=== PATIENT | female | born 1965 | race Caucasian/White ===

== ENCOUNTER 2024-11-07 00:57 | Day surgery (SDC) | payer OTHER, SELFPAY ==
[2024-10-16 11:13] VITALS: BMI 25.8
[2024-11-07 06:27] VITALS: BP 152/94; PULSE 78; RESP 16; TEMP 36.3; O2SAT 99; BMI 25.8
[2024-11-07] MEDS: LACTATED RINGERS 1,000 ML 150 ML IV CONT (06:37)
--- NOTE | 2024-11-07 07:04 | P.PNAN_ITS ---
Anes - Initial Pre Proc Eval Procedure: Operation Date: 11/07/24 07:30 Proposed Procedures p Screening Colonoscopy - Bernabe Hood MD Date/Time: 11/07/24 07:04 Surgeon: Bernabe Hood MD Pre Op Diagnosis: Neoplasm screening Patient Data Age: 59 Gender: F Height: 1.7 m Weight: 74.9 kg Last Vital Signs Temp 36.3 C L 11/07/24 06:27 Pulse 78 11/07/24 06:27 Resp 16 11/07/24 06:27 BP 152/94 H 11/07/24 06:27 Pulse Ox 99 11/07/24 06:27 O2 Del Method Room Air 11/07/24 06:27 Allergies Allergy/AdvReac Type Severity Reaction Status Date / Time epinephrine AdvReac Unknown EXTREMELY Verified 11/07/24 06:23 RAPID HEARTBEAT WITH EPI DURING DENTAL PROCEDURE Lisinopril Allergy Mild Cough Uncoded 11/07/24 06:23 Losartan Allergy Cough Uncoded 11/07/24 06:23 Home Medications ?Medication ?Instructions ?Recorded ?Confirmed ?Type doxycycline hyclate 100 mg capsule 100 mg PO BID #14 caps 05/09/24 10/16/24 Rx fluconazole 150 mg tablet 150 mg PO .COMPLEX #2 tabs 05/09/24 10/16/24 Rx alprazolam 0.5 mg tablet 0.5 mg PO QHS PRN sleep #30 tabs 10/09/24 10/16/24 Rx Patient hx anesthesia problems: none Family hx anesthesia problems: none Results Review: All pre-operative results and documents have been reviewed as part of the pre- operative evaluation. [facility] Past Medical History Medical History Breast cancer Surgical History Surgical History History of cholecystectomy History of bilateral mastectomy 06/2013 Family History Family History Grandparent Acute myocardial infarction Breast cancer Hypertension Heart disease Family history of malignant neoplasm Other Acute myocardial infarction Heart disease Mother Carcinoma of colon Colon polyp Family history of malignant neoplasm Father Diabetes mellitus Family history of arthritis Hypertension Heart disease Sibling Family history of arthritis Sibling Family history of arthritis Social History Social History Smoking status: Never smoker Second hand tobacco smoke exposure: No Alcohol intake: current Alcohol use details: Socially Substance use: never Substance use type: does not use Lack of Transportation: No Lack of Food: Never True Current Housing: I Have Housing Concerned About Future Housing: No Difficulty Paying Gas/Electric Bills: No Difficulty Paying for Meds: No Currently Unemployed: No Education: Bachelor's Degree Difficulty w/ Childcare or Family Care: No Living arrangements: with family Occupation/Education: retired Gender identity (if verbalized by the patient): Female Sexual Orientation (if Verbalized by the Patient): Straight or Heterosexual Spiritual care concerns: No Agree to blood products: Yes Anes - Eval Final PreProcedure Day of Procedure 11/07/24 07:04 Patient weight: normal Heart: regular rate and rhythm Lungs: clear to auscultation Airway: Mallampati scale class II Neurological: alert and oriented Last oral intake: >/= 8 hours ASA classification: III Emergent: no Anesthetic plan: proceed Anesthesia type and monitoring: general GIVS and standard monitoring Results Review: All pre-operative results and documents have been reviewed as part of the pre- operative evaluation. Informed Consent: The patient's anesthetic plan and its attendant risks and benefits were discussed with the patient/family/POA. Questions were solicited and answers provided to the satisfaction of the patient/family/POA.
--- NOTE | 2024-11-07 07:24 | PM.HPGS ---
History of Present Illness History of Present Illness Consent: Risks, benefits, and alternatives have been discussed and questions answered. Patient agrees to proceed with procedure. Chief complaint: Neoplasm screening Narrative: Carolina Hammer is a 59 year old female with last colonoscopy 5 years ago, mother had colon cancer Review of Systems Review of Systems: All systems reviewed & are unremarkable except as noted in HPI and below PMFSH Past Medical History Medical History (Updated 11/07/24 @ 07:25 by Bernabe Hood MD) Family history of colon cancer in mother Breast cancer Surgical History Surgical History History of cholecystectomy History of bilateral mastectomy 06/2013 Family History Family History Grandparent Acute myocardial infarction Breast cancer Hypertension Heart disease Family history of malignant neoplasm Other Acute myocardial infarction Heart disease Mother Carcinoma of colon Colon polyp Family history of malignant neoplasm Father Diabetes mellitus Family history of arthritis Hypertension Heart disease Sibling Family history of arthritis Sibling Family history of arthritis Social History Social History Smoking status: Never smoker Second hand tobacco smoke exposure: No Alcohol intake: current Alcohol use details: Socially Substance use: never Substance use type: does not use Lack of Transportation: No Lack of Food: Never True Current Housing: I Have Housing Concerned About Future Housing: No Difficulty Paying Gas/Electric Bills: No Difficulty Paying for Meds: No Currently Unemployed: No Education: Bachelor's Degree Difficulty w/ Childcare or Family Care: No Living arrangements: with family Occupation/Education: retired Gender identity (if verbalized by the patient): Female Sexual Orientation (if Verbalized by the Patient): Straight or Heterosexual Spiritual care concerns: No Agree to blood products: Yes Meds Home Medications and Allergies Home Medications ?Medication ?Instructions ?Recorded ?Confirmed ?Type doxycycline hyclate 100 mg capsule 100 mg PO BID #14 caps 05/09/24 10/16/24 Rx fluconazole 150 mg tablet 150 mg PO .COMPLEX #2 tabs 05/09/24 10/16/24 Rx alprazolam 0.5 mg tablet 0.5 mg PO QHS PRN sleep #30 tabs 10/09/24 10/16/24 Rx Allergies Allergy/AdvReac Type Severity Reaction Status Date / Time epinephrine AdvReac Unknown EXTREMELY Verified 11/07/24 06:23 RAPID HEARTBEAT WITH EPI DURING DENTAL PROCEDURE Lisinopril Allergy Mild Cough Uncoded 11/07/24 06:23 Losartan Allergy Cough Uncoded 11/07/24 06:23 Vital Signs Vital Signs - 24 hr 11/07/24 06:27 Temperature 97.3 F L Pulse Rate 78 Respiratory Rate 16 Blood Pressure 152/94 H Pulse Oximetry 99 Oxygen Delivery Room Air Exam Const: General: comfortable and no acute distress HENMT: Face/Nose/Sinus: Normal nares present Eyes: General: appearance normal, both eyes and all related structures Neck: Neck: no JVD Resp: Auscultation: clear to auscultation bilaterally Cardio: Rate: regular rate Rhythm: regular rhythm GI: Inspection: non-distended GI Palp: Yes Soft to palpation Skin: General skin exam: normal color Neuro: General: gait normal Speech: normal speech Extrem: General: normal to inspection Psych: Mental Status: mental status grossly normal Assessment and Plan Assessment and plan (1) Family history of colon cancer in mother: Code(s): Z80.0 - Family history of malignant neoplasm of digestive organs Status: Acute Assessment and Plan: colonoscopy
[2024-11-07 07:41] VITALS: BP 103/71; PULSE 76; RESP 24; O2SAT 98
[2024-11-07 07:51] VITALS: BP 121/77; PULSE 68; RESP 18; O2SAT 99
[2024-11-07 08:01] VITALS: BP 129/92; PULSE 70; RESP 17; O2SAT 100
[2024-11-07 08:19] LABS: BEDSIDEPREGUCG Negative (Negative)
== END 2024-11-07 08:05 | disposition home or self-care (01) ==
PROVIDERS: PCP Family Medicine Adolescent Medicine; Referring Provider Nurse Practitioner Family; Visit Provider Internal Medicine Gastroenterology
PROC: 0DJD8ZZ Inspection of Lower Intestinal Tract, Via Natural or Artificial Opening Endoscopic (ICD-10-PCS; CPT 45378; principal; 2024-11-07 07:30)
DX: Z12.11 Encounter for screening for malignant neoplasm of colon (principal); K64.8 Other hemorrhoids; K57.30 Diverticulosis of large intestine without perforation or abscess without bleeding; Z98.890 Other specified postprocedural states; Z90.49 Acquired absence of other specified parts of digestive tract; Z90.13 Acquired absence of bilateral breasts and nipples; Z85.3 Personal history of malignant neoplasm of breast; Z80.3 Family history of malignant neoplasm of breast; Z80.0 Family history of malignant neoplasm of digestive organs; Z82.49 Family history of ischemic heart disease and other diseases of the circulatory system
CPT/HCPCS: 45378; J2003; J2704; J7120

== ENCOUNTER 2025-06-13 08:03 | Outpatient (CLI) | payer OTHER, SELFPAY ==
--- NOTE | ~2025-06-13 | XR_ITS ---
XR thoracic spine 3V 06/13/2025 08:33 Indication: Back pain Procedure: 3 views thoracic spine Comparison: No prior studies for comparison. Findings: There is mild dextrocurvature centered at the thoracolumbar junction. Vertebral body height s are maintained. No acute fracture, subluxation or dislocation. No paraspinal soft tissue abnormalit y. Pedicles intact. Impression: 1: No acute abnormality of the thoracic spine. 2: Mild dextrocurvature of the spine centered at the thoracolumbar junction Reviewed, dictated and finalized at location A. Impression: 1: No acute abnormality of the thoracic spine. 2: Mild dextrocurvature of the spine centered at the thoracolumbar junction
--- NOTE | ~2025-06-13 | XR_ITS ---
XR shoulder RT min 2V 06/13/2025 08:33 Indication: Right shoulder pain Procedure: 4 views right shoulder Comparison: No prior studies for comparison. Findings: There is anatomic alignment. No fracture, subluxation or dislocation. No soft tissue abnorm ality. No foreign bodies. Impression: 1: No acute bone or joint abnormality. Reviewed, dictated and finalized at location A. Impression: 1: No acute bone or joint abnormality.
--- NOTE | ~2025-06-13 | XR_ITS ---
EXAM: XR hand RT min 3V DATE: 06/13/2025 08:32 HISTORY: M79.644 - Pain in right finger(s) . COMPARISON: None available. FINDINGS: Normal mineralization. No fracture or dislocation. No lytic or blastic lesion. Mild scatte red degenerative changes. No erosion or periosteal change. Soft tissues within normal limits. 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 Reviewed, dictated and finalized at location K.
--- OUTSIDE RECORDS SUMMARY | 2025-06-13 08:06 | XMS_ITS ---
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 Name Role Phone Grady Brock MD Primary Care Prov ider Active Problems Problem Noted Date Diagnosed Date Abnormal uterine bleeding (AUB) 01/31/2023 Overview (01/31/2023): Added automatically from request for surgery [id number] Endometrium, polyp 01/31/2023 Overview (01/31/2023): Added automatically from request for surgery [id number] History of bilateral breast implants 10/03/2019 Overview (10/03/2019): Added automatically from request for surgery [id number] History of right breast cancer 07/10/2019 Left breast lump 07/10/2019 Breast pain 10/13/2016 Acquired absence of both breasts 09/28/2015 Mass of breast 09/13/2015 Lumbago 05/04/2015 History of breast reconstruction 12/09/2014 Arthralgia of shoulder 07/29/2014 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 Past Treatment and Therapy Plans No past plan information found. Lifetime Dose Tracking * Chemical Lifetime Dose Automatic Entry Manual Entr y Fluoro Time 3.086 minutes 3.086 minutes 0 minutes Air kerma at the reference point (Ka,r) 0.001 mGy 0 .001 mGy 0 mGy
--- OUTSIDE RECORDS SUMMARY | 2025-06-13 08:06 | XMS_ITS | Clinical Summary ---
Author Organization [facility] Address [address] [place] [address] Care Team Providers Care Brake Holder Name Role Phone Grady Brock MD Primary Care Prov ider Allergies Active Allergy Reactions Criticality Noted Date Comments Cyclobenzaprine Vision changes Medium 07/08/2014 Epinephrine Itching Low 06/05/2013 Hydrocodone Itching Low 07/08/2014 Medications ALPRAZolam (XANAX) 0.5 mg tablet Take 1 tablet (0.5 mg total) by mouth 3 (three) times a day as needed for anxiety (panic attack) 9 Active acyclovir (ZOVIRAX) 400 mg tabletIndicatio ns:Cold sore outbreak Take 1 tablet (400 mg total) by mouth 3 (three) times a day as needed 2 Active brimonidine (Lumify) 0.025 % dropsIndication s:Ocular Redness Administer 1 drop into both eyes daily as needed Active Active Problems Problem Noted Date Diagnosed Date Abnormal uterine bleeding (AUB) 01/31/2023 Overview (01/31/2023): Added automatically from request for surgery [id number] Endometrium, polyp 01/31/2023 Overview (01/31/2023): Added automatically from request for surgery [id number] History of bilateral breast implants 10/03/2019 Overview (10/03/2019): Added automatically from request for surgery [id number] History of right breast cancer 07/10/2019 Left breast lump 07/10/2019 Breast pain 10/13/2016 Acquired absence of both breasts 09/28/2015 Mass of breast 09/13/2015 Lumbago 05/04/2015 History of breast reconstruction 12/09/2014 Arthralgia of shoulder 07/29/2014 Carcinoma in situ of breast 06/17/2013 Immunizations Immunization Administration Dates Next Due Influenza, Quadrivalent, Viji l Culture-based MDCK, Antibiotic Free, Intramuscular 10/03/2019 Influenza, Quadrivalent, Spl it, Preservative Free, Intramuscular 07/31/2020 Pfizer SARS-CoV-2 Monovalent Vaccination (12+ Yrs) PURPLE 01/25/2021,12/28/2020 ZOSTER Recombinant 05/10/2019,02/26/2019 Surgical History Surgery Date Site/Laterality Comments US UNLISTED PROCEDURE LYMPH SYSTEM 07/17/2013 N/A EPIDURAL INJECTION LUMBOSACRAL 02/03/2016 N/A EPIDURAL INJECTION LUMBOSACRAL 06/12/2015 N/A CHOLECYSTECTOMY 12/28/2009 - 01/27/2010 MASTECTOMY 06/30/2013 - 07/29/2013 Bilateral right cancer, left prophyl BREAST RECONSTRUCTION 11/12, 06/12, 08/12, 11/13 Bilateral NASAL ENDOSCOPY W/ BALLON SINUPLASTY 06/30/2015 - 07/29/2015 FL FLUORO GUIDED LUMBAR PUNCTURE 02/07/2022 Right FL FLUORO GUIDED LUMBAR PUNCTURE 08/09/2022 Right BREAST RECONSTRUCTION 10/30/2019 - 11/29/2019 Bilateral FACET BLOCK LUMBAR SACRAL 1 LEVEL LEFT 11/16/2023 Bilateral FACET BLOCK LUMBAR SACRAL 1 LEVEL LEFT 11/30/2023 Bilateral PYLOROMYOTOMY Medical History Medical History Date Comments Anxiety Anxiety; Comment s: ALT 08/16/2016 - Malignant neoplasm of female breast (HCC) Cancer, breast; Comments: ALT 08/16/2016 - Depression Depression Migraine Migraines; Comme nts: ALT 08/16/2016 - Poor circulation Back pain Arthritis Acid reflux Wears glasses Hypertension Motion sickness Family History Medical History Relation Name Comments Arthritis Father Mansoor Randy Diabetes Father Mansoor Randy Hypertension Father Mansoor Randy Hypertension; Memory loss Father Mansoor Randy Heart attack Maternal Grandfather Chris Nieves heart attack; Breast cancer Maternal Grandmother Martha Nieves Canc er, breast; Cancer Maternal Grandmother Martha Nieves Other Maternal Grandmother Martha Nieves blood clots legs; Cancer Mother Natalee Padilla Colon cancer Mother Natalee Padilla Hyperlipidemia Mother Natalee Padilla Thyroid cancer Mother Natalee Padilla Heart attack Mother's Brother Trent Nieves Relation Name Status Comments Father Mansoor Padilla Alive Maternal Grandfather Chris Nieves Maternal Grandmother Martha Nieves Mother Natalee Padilla Alive Mother's Brother Trent Nieves Social History Tobacco Use Types Packs/Day Years Used Date Smoking Tobacco: Never Passive Smoke Exposure: Never Smokeless Tobacco: Never Tobacco Cessation:Counseling Given: Not Answered Alcohol Use Standard Drinks/Week Comments No 0 (1 standard drink = 0.6 oz pur e alcohol) AUDIT-C Answer Date Recorded Q1: How often do you have a drink containing alc ohol? 2-4 times a month 12/24/2024 Average Number of Drinks Not on file 025 Frequency of Binge Drinking Not on file 12/01 Personal Safety Answer Date Recorded Have you ever been in or are you currently in a harmful physical or emotional relationship or is someone making you feel afraid or unsafe? Denies 12/14/2023 Comments No Sex and Gender Information Value Date Recorded Sex Assigned at Not on file Legal Sex Female 4:13 AM JEWEL SUPERVISOR Gender Identity Not on file Sexual Orientation Not on file Occupation Industry Job Start Date Job End Date stays at home Not on file Not on file Not on file Obstetrics History Para Term AB IAB SAB Ectopic Multiple Livin g Live Births 1 1 1 1 Date Outcome GA Total Labor Labor/2nd/3rd Weight Sex Type Anes PTL Ingris A1 A5 Name Clin Para Last Filed Vital Signs Vital Sign Reading Time Taken Comments Blood Pressure 130/76 12/30/2024 7:40 AM JEWEL SUPERVISOR Pulse 67 12/14/2023 11:17 AM JEWEL SUPERVISOR Temperature 36 C (96.8 F) 03/10/2023 11:00 AM CDT Respiratory Rate 16 12/14/2023 11:17 AM JEWEL SUPERVISOR Oxygen Saturation 98% 12/14/2023 11:17 AM JEWEL SUPERVISOR Inhaled Oxygen Concentration - - Weight 79.4 kg (175 lb) 12/30/2024 7:40 AM JEWEL SUPERVISOR Height 167.6 cm (5' 6) 12/30/2024 7:40 AM JEWEL SUPERVISOR Body Mass Index 28.25 12/30/2024 7:40 AM JEWEL SUPERVISOR Plan of Treatment Health Maintenance Due Date Last Done Comments Hepatitis C Screening 1966 DTaP/Tdap/Td Vaccine (1 - Tdap) 1977 Hepatitis B Screening 1984 Breast Cancer Screening-Mammogram 12/03/2013 12/03/2012 Depression Screening 11/13/2018 11/13/2017 Covid-19 Vaccine (3 - season) 2024 01/25/2021, 12/28/2020 Influenza Vaccine (#1) 2025 , 10/03/2019, 07/17/2013, Additional history exists Cervical Cancer Screening 12/30/20252024, 12/30/2024, 03/25/2021 Regular Well Visit/Exam 18-64 12/30/2025 12/30/2024, 07/25/2023, 12/05/2022, Additional history exists Colon Cancer Screening-Colonoscopy 12/05/2032 12/05/2022 Zoster Vaccine Completed 05/10/2019, 02/26/2019 Colon Cancer Screening-CT Colonography Discontinued 12/05/2022 Colon Cancer Screening-DNA Stool Discontinued 12/05/2022 Colon Cancer Screening-FIT Discontinued 12/05/2022 Colon Cancer Screening-Sigmoidoscopy Discontinued 12/05/2022 Pneumococcal vaccine <65 Aged Out No longer eligible based on patient's age to complete this topic Medical Devices Implanted Type Area Spray Gun Sizer Device Identifier Shelf Expiration Date Model / Serial / Lot Breast Breast Bilateral: Breast [employer] Ssf-415 Natrelle Inspira Smooth Shell Surface Full Profile Implant 415cc Latex Free - [id number] - [id number] Implanted:Qty: 1 on 11/06/2019 by Norman Flores MD at [facility] Right: Breast [employer] 07/15/2024 SSF-415 / [id number] / [employer] Ssf-415 Natrelle Inspira Smooth Shell Surface Full Profile Implant 415cc Latex Free - [id number] - [id number] Implanted:Qty: 1 on 11/06/2019 by Norman Flores MD at [facility] Left: Breast [employer] 06/14/2024 [facility]-415 / [id number] / Procedures Procedure Name Priority Date/Time Associated Diagnosis Comments HIGH RISK HPV DNA DETECTION WITH GENOTYPING Routine 12/30/2024 9:00 AM JEWEL SUPERVISOR Cervical cancer screening SCREENING MAMMOGRAM W JAVIER Routine 12/03/2012 11:06 AM JEWEL SUPERVISOR from Last 3 Months or Most Recently Relevant to Health Maintenance Results * High Risk HPV DNA Detection with Genotyping (Molecular component) (12/30/2024 9:00 AM JEWEL SUPERVISOR) HPV HR 16 Not Detected Not Detected [facility] Comment:Testing performed by : [facility], [address] [place]., [address] HPV HR 18 Not Detected Not Detected [facility] Comment:Testing performed by : [facility], [address] [facility], [address] HPV HR Non 16/18 Not Detected Not Detected [facility] Comment: Interpretive Data Nucleic acid amplification for detection of high-risk Human Papilloma virus (HPV) is performed by the [employer] 6800 HPV test. This assay specifically detects HPV-16 and HPV-18 genotypes. The following HPV genotypes are detected as high-risk HPV: HPV-31, 33, 35, ,39, 45, 51, 52, 56, 58, 59, 66, and 68. This assay has been approved by the [place] Food and Drug Administration for detection of HPV in cervical specimens collected by a physician using an endocervical brush/spatula or cervical broom and placed in the ThinPrep Pap Test PreservCyt collection containers. The performance characteristics of this test have been verified by the [facility] laboratory. Correlate with separately reported cytology results, as applicable. Interpretive data last revised 23 Testing performed by: [facility], [address] [place]., [address] Endocervical 12/30/2024 9:00 AM JEWEL SUPERVISOR 12/31/2024 2:57 PM JEWEL SUPERVISOR Narrative JAMAL WHITMAN - 01/01/2025 5:06 AM JEWEL SUPERVISOR Clinical history and diagnosis->none Number of vials->1 Testing type->Screening Last menstrual period (date if known)->12/20/2024 Jannet Dee NP LAB BODY FLUIDS AND STOOLS O RDERABLES Final Result JAMLA [address] [place] [address] [facility] * Screening Mammogram W Javier (12/03/2012 11:06 AM JEWEL SUPERVISOR) Anatomical Region Laterality Modality Breast N/A Mammography 12/03/2012 11:0 6 AM JEWEL SUPERVISOR Narrative 12/03/2012 3:35 PM JEWEL SUPERVISOR ROMINA MEZA M.D. ESTER ACKERMAN M.D. FINAL REPORT The radiology attending physician has personally reviewed this study, and has reviewed and/or edited this written report and agrees with it. ACC# Date Time Exam [id number] Dec 03, 2012 11:26:00 [facility] [id number] Sono Breast (Unilateral) R [id number] Dec 03, 2012 11:06:00 [facility] [id number] Diag Mammogram Unilateral R Technologist(s): Britta Luz; ; [id number] Dec 03, 2012 11:06:00 [facility] [id number] Unilateral Tomosynthesis R Technologist(s): Britta Luz; ; [id number] Dec 03, 2012 12:20:00 [facility] [id number] Consult Out Films (read) EXAMINATION: I. READING OF OUTSIDE IMAGING EXAMINATION - RIGHT BREAST DIAGNOSTIC MAMMOGRAM from the [facility] dated 11/27/2012. II. RIGHT UNILATERAL FULL FIELD DIGITAL DIAGNOSTIC MAMMOGRAM, DIGITAL RIGHT BREAST TOMOSYNTHESIS, AND RIGHT BREAST SONOGRAM HISTORY: 47-year-old woman with an abnormal mammogram from another institution. Interpretation of the patient's outside mammogram is requested by Pat Witt, MSN [facility]-, who is seeing the patient in Breast Surgery Clinic today for Dr. Brandi Fraser. Also, diagnostic imaging evaluation is requested, if indicated. The patient reports having discontinued control pills in the aubrey of last year. She denies having had any change in weight. I. EXAMINATION - READING OF OUTSIDE IMAGING EXAMINATION - RIGHT BREAST DIAGNOSTIC MAMMOGRAM from the [facility] dated 11/27/2012. DATE OF INTERPRETATION: 12/03/2012 COMPARISON: Comparison is made with earlier prior outside right mammograms from [place] dated 11/21/2012, 08/24/2011, 08/18/2010, 08/17/2009, 08/15/2008, 08/13/2007, 08/18/2006, and 07/18/2005. BREAST PARENCHYMAL COMPOSITION: There are scattered fibroglandular densities. FINDINGS: When compared with the earlier prior outside right mammograms dating back to 2004 and 2005, there has been interval development of asymmetric density in the posterior upper outer quadrant of the right breast. IMPRESSION - Developing asymmetry in the posterior upper outer quadrant of the right breast. Diagnostic imaging evaluation with mammography and sonography was performed for further evaluation. II. RIGHT UNILATERAL FULL FIELD DIGITAL DIAGNOSTIC MAMMOGRAM, DIGITAL RIGHT BREAST TOMOSYNTHESIS, AND RIGHT BREAST SONOGRAM DATE: 12/03/2012 MAMMOGRAM TECHNIQUE: Full mediolateral view of the right breast and spot compression magnification craniocaudal and mediolateral views of the area of interest were obtained on a total of 3 images utilizing full field digital mammography. Digital right breast tomosynthesis was also performed and reviewed as a part of this examination. BREAST PARENCHYMAL COMPOSITION: There are scattered fibroglandular densities. MAMMOGRAM FINDINGS: No suspicious mass or architectural distortion is identified in the vicinity of the developing asymmetry of concern in the posterior upper outer quadrant of the right breast. SONOGRAM FINDINGS: Directed sonogram of the upper outer quadrant of the right breast demonstrates no focal abnormal solid or cystic lesion in the vicinity of the developing asymmetry of concern identified on recent outside mammograms. IMPRESSION: Developing asymmetry in the posterior upper outer quadrant of the right breast with no definite sonographic correlate. Biopsy is recommended to exclude the small possibility of malignancy. This asymmetry is likely amenable to stereotactic-guided core needle biopsy. At the conclusion of the examination, the above findings and recommendations were discussed with the patient and were communicated to MELANIE Hickman ACNS-, who is seeing the patient in breast surgery clinic today for Dr. Brandi Aft. The patient has been scheduled to return to the [facility] for a stereotactic-guided core needle biopsy of the right breast on 12/05/2011 at 8:00 a.m. OVERALL FINAL ASSESSMENT: BI-RADS Category 4A: Suspicious abnormality. Low suspicion for malignancy. Requested By: Selene Witt Dictated By: ESTER ACKERMAN M.D. on Dec 03 2012 2:00P This document has been electronically signed by: ROMINA MEZA M.D. on Dec 03 2012 3:35P Procedure Note Provider, MD Victorino - 03/04/2017 ROMINA MEZA M.D. ESTER ACKERMAN M.D. FINAL REPORT The radiology attending physician has personally reviewed this study, and has reviewed and/or edited this written report and agrees with it. ACC# Date Time Exam [id number] Dec 03, 2012 11:26:00 [facility] [id number] Sono Breast (Unilateral) R [id number] Dec 03, 2012 11:06:00 [facility] [id number] Diag Mammogram Unilateral R Technologist(s): Britta Luz; ; [id number] Dec 03, 2012 11:06:00 [facility] [id number] Unilateral Tomosynthesis R Technologist(s): Britta Luz; ; [id number] Dec 03, 2012 12:20:00 [facility] [id number] Consult Out Films (read) EXAMINATION: I. READING OF OUTSIDE IMAGING EXAMINATION - RIGHT BREAST DIAGNOSTIC MAMMOGRAM from the [facility] dated 11/27/2012. II. RIGHT UNILATERAL FULL FIELD DIGITAL DIAGNOSTIC MAMMOGRAM, DIGITAL RIGHT BREAST TOMOSYNTHESIS, AND RIGHT BREAST SONOGRAM HISTORY: 47-year-old woman with an abnormal mammogram from another institution. Interpretation of the patient's outside mammogram is requested by Pat Witt, MSN [facility]-, who is seeing the patient in Breast Surgery Clinic today for Dr. Brandi Fraser. Also, diagnostic imaging evaluation is requested, if indicated. The patient reports having discontinued control pills in the aubrey of last year. She denies having had any change in weight. I. EXAMINATION - READING OF OUTSIDE IMAGING EXAMINATION - RIGHT BREAST DIAGNOSTIC MAMMOGRAM from the [facility] dated 11/27/2012. DATE OF INTERPRETATION: 12/03/2012 COMPARISON: Comparison is made with earlier prior outside right mammograms from [place] dated 11/21/2012, 08/24/2011, 08/18/2010, 08/17/2009, 08/15/2008, 08/13/2007, 08/18/2006, and 07/18/2005. BREAST PARENCHYMAL COMPOSITION: There are scattered fibroglandular densities. FINDINGS: When compared with the earlier prior outside right mammograms dating back to 2004 and 2005, there has been interval development of asymmetric density in the posterior upper outer quadrant of the right breast. IMPRESSION - Developing asymmetry in the posterior upper outer quadrant of the right breast. Diagnostic imaging evaluation with mammography and sonography was performed for further evaluation. II. RIGHT UNILATERAL FULL FIELD DIGITAL DIAGNOSTIC MAMMOGRAM, DIGITAL RIGHT BREAST TOMOSYNTHESIS, AND RIGHT BREAST SONOGRAM DATE: 12/03/2012 MAMMOGRAM TECHNIQUE: Full mediolateral view of the right breast and spot compression magnification craniocaudal and mediolateral views of the area of interest were obtained on a total of 3 images utilizing full field digital mammography. Digital right breast tomosynthesis was also performed and reviewed as a part of this examination. BREAST PARENCHYMAL COMPOSITION: There are scattered fibroglandular densities. MAMMOGRAM FINDINGS: No suspicious mass or architectural distortion is identified in the vicinity of the developing asymmetry of concern in the posterior upper outer quadrant of the right breast. SONOGRAM FINDINGS: Directed sonogram of the upper outer quadrant of the right breast demonstrates no focal abnormal solid or cystic lesion in the vicinity of the developing asymmetry of concern identified on recent outside mammograms. IMPRESSION: Developing asymmetry in the posterior upper outer quadrant of the right breast with no definite sonographic correlate. Biopsy is recommended to exclude the small possibility of malignancy. This asymmetry is likely amenable to stereotactic-guided core needle biopsy. At the conclusion of the examination, the above findings and recommendations were discussed with the patient and were communicated to MELANIE Hickman ACNS-BC, who is seeing the patient in breast surgery clinic today for Dr. Brandi Fraser. The patient has been scheduled to return to the [facility] for a stereotactic-guided core needle biopsy of the right breast on 12/05/2011 at 8:00 a.m. OVERALL FINAL ASSESSMENT: BI-RADS Category 4A: Suspicious abnormality. Low suspicion for malignancy. Requested By: Selene Witt [facility] Dictated By: ESTER ACKERMAN M.D. on Dec 03 2012 2:00P This document has been electronically signed by: ROMINA MEZA M.D. on Dec 03 2012 3:35P Historical Provider MD [facility]ED[facility] Gena l Result from Last 3 Months or Most Recently Relevant to Health Maintenance Insurance [employer] Dajie [employer] CLAIMS [employer] CLAIMS [employer] CLAIMS Care Teams Brake Holder Relationship Specialty Start Date End Date Grady Brock MD [address] [place] [address] PCP - General Family Medicine 08/21/17
--- OUTSIDE RECORDS SUMMARY | 2025-06-13 08:06 | XMS_ITS | Continuity of Care Document ---
Author Name [facility] Organization [facility] Care Team Providers Care Wax Ball Knock Out Worker Name Role Phone [facility] Unavailable Unavailable Medications Combined list of outpatient medications from Department of Defense and Veterans Affairs facilities.Medications provided include 1) outpatient medications from the last 15 months, and 2) patient-reported medications. Medication Details Route Status Patient Instructions Prescription Expires Prescription Number Last Dispense Date Ordering Provider Order Date Order Qty Source ALPRAZOLAM (ALPRAZOLAM ), 0.5MG, TABLET, ORAL, ACTAVIS ELIZABE, 500 ea. BOTTLE Active [id number] 4 2023 30 Pharmac y Data Transac tion Service Facilit y FLUCONAZOLE (fluconazol e), 150 MG, TABLET, ORAL, ZYDUS PHARMACEU, 12 ea. BLIST PACK Active [id number] 4 2023 1 Pharmac y Data Transac tion Service Facilit y Nitrofurant oin ([employer], [employer]) 100 CAPSULE in 1 BOTTLE Cancele d [id number] : 2023 0 Pharmac y Data Transac tion Service Facilit y Nitrofurant oin ([employer]) 100 CAPSULE in 1 BOTTLE Active [id number] 4 2023 10 Pharmac y Data Transac tion Service Facilit y SULFAMETHOX AZOLE-TRIME THOPRIM (SULFAMETHO XAZOLE/TRIM ETHOPRIM), 800-160MG, TABLET, ORAL, AUROBINDO PHARM, 500 ea. BOTTLE Active [id number] 4 2023 14 Pharmac y Data Transac tion Service Facilit y Allergies, Adverse Reactions, Alerts Combined list of allergies from Department of Defense and Veterans Affairs facilities. It does not include entries that were removed or entered in error. Substance Category Reaction Severity Reaction type Status Date Reported Comments Source No Known Allergies Drug allergy (disorder) active 01/10/2008 DoD Immunizations Combined list of available immunizations from the Department of Defense and Veterans Affairs facilities. Immunization Series Date Given Administered By Site Reaction Lot Number CVX Code Drug Window Shade Ring Coverer Status Comments Source COVID-19, mRNA, LNP-S, PF, 30 mcg/0.3 mL dose, darell-sucrose 2021 ALUL, () Not Given COVID-19, mRNA, LNP-S, PF, 30 mcg/0.3 mL dose, darell-sucr ose DoD influenza, injectable, quadrivalent, preservative free 2020 ALUL, () Not Given influenza , injectabl e, quadrival ent, preservat margaux free DoD COVID-19, mRNA, LNP-S, PF, 30 mcg/0.3 mL dose 2020 ALUL, () Not Given COVID-19, mRNA, LNP-S, PF, 30 mcg/0.3 mL dose DoD COVID-19, mRNA, LNP-S, PF, 30 mcg/0.3 mL dose 2020 [place] (PFR) Not Given COVID-19, mRNA, LNP-S, PF, 30 mcg/0.3 mL dose DoD influenza, injectable, quadrivalent, preservative free 2019 ALUL, () Not Given influenza , injectabl e, quadrival ent, preservat margaux free DoD Influenza, injectable, MDCK, quadrivalent, preservative 2018 ISAMAR SHAFFER () Not Given Influenza , injectabl e, MDCK, quadrival ent, preservat margaux DoD zoster recombinant 2018 ISAMAR SHAFFER () Not Given zoster recombina nt DoD MMR 2018 ISAMAR SHAFFER () Not Given MMR DoD Hep A-Hep B 2017 ISAMAR SHAFFER () Not Given Hep A-Hep B DoD Tdap 2016 ISAMAR SHAFFER () Not Given Tdap DoD Hep A-Hep B 2016 ISAMAR SHAFFER () Not Given Hep A-Hep B DoD Hep A-Hep B 2016 ISAMAR SHAFFER () Not Given Hep A-Hep B DoD Hep A-Hep B 2016 ISAMAR SHAFFER () Not Given Hep A-Hep B DoD Hep A-Hep B 2016 ISAMAR SHAFFER [employer] (SKB) Not Given Hep A-Hep B [facility] Novel influenza-H1N 1-09 2009 [employer] (PMC) Not Given Novel influenza -[id number] DoD Social History Combined list of available smoking, tobacco, and other social history from Department of Defense and Veterans Affairs facilities. Social History Type Response Date Comment Sourc e This section is an empty social history section. DoD
== END 2025-06-13 08:04 | disposition home or self-care (01) ==
PROVIDERS: PCP Family Medicine Adolescent Medicine; Visit Provider Family Medicine
DX: M79.644 Pain in right finger(s) (principal); M25.511 Pain in right shoulder; M54.9 Dorsalgia, unspecified; M19.041 Primary osteoarthritis, right hand
CPT/HCPCS: 72072; 73030; 73130